=== PATIENT | female | born 1940 | race Caucasian/White ===

== ENCOUNTER → 2024-10-08 | Outpatient (CLI) | payer MEDICARE, MEDICAID, SELFPAY ==
[2024-10-08 10:46] LABS: Collection Type, Urine Clean Catch
[2024-10-08 11:24] LABS: Basophils # (Auto) 0.1 Thou/mm3 (0.0-0.2); Basophils % (Auto) 1 % (0-2.5); Eosinophils # (Auto) 0.1 Thou/mm3 (0.0-0.5); Eosinophils % (Auto) 2 % (0-10); Hematocrit 42.2 % (36.0-46.0); Hemoglobin 14.2 g/dL (12.0-16.0); Immature Granulocytes % (Auto) 0 % (0-0); Immature Granulocytes Auto 0.02 Thou/mm3 (0.00-0.00); Lymphocytes # (Auto) 1.3 Thou/mm3 (1.0-4.8); Lymphocytes % (Auto) 20 % (10-50); Mean Corpuscular HGB Conc 33.6 g/dl (31.0-37.0); Mean Corpuscular Hemoglobin 29.3 pg (25.0-35.0); Mean Corpuscular Volume 87 fL (80-100); Monocytes # (Auto) 0.4 Thou/mm3 (0.0-0.8); Monocytes % (Auto) 6 % (0-12); Neutrophils # (Auto) 4.6 Thou/mm3 (1.8-7.7); Neutrophils % (Auto) 71 % (37-80); Nucleated Red Blood Cell % 0 /100 WBC (0); Platelet Count 166 Thou/mm3 (140-440); RDW Standard Deviation 40.5 fL (36.4-46.3); Red Blood Count 4.84 Miln/mm3 (4.00-5.20); White Blood Count 6.5 Thou/mm3 (3.6-11.0)
[2024-10-08 11:26] LABS: Bilirubin,Urine Negative (Negative); Blood,Urine Trace (Negative); Clarity,Urine Clear (Clear/Hazy); Color,Urine Yellow (Lt Yel-Yel); Glucose, Urine Negative (Negative); Hyaline Casts,Urine < 1 /hpf (0-1); Ketones,Urine Negative (Negative); Leukocyte Esterase,Urine Positive (Negative); Nitrite,Urine Negative (Negative); PH,Urine 6.5 (5.0-7.0); Protein,Urine Negative (Neg - Trace); RBC,Urine 10 /hpf (0-3); Specific Gravity,Urine 1.015 (1.001-1.035); Squamous Epithelial Cell,Urine 1 /hpf (0-5); Urobilinogen,Urine Negative mg/dL (0.0-1.0); WBC,Urine 38 /hpf (0-5)
[2024-10-08 11:33] LABS: Parathyroid Hormone Intact 111.3 pg/ml (18.5-88.0)
[2024-10-08 11:39] LABS: Alanine Aminotransferase 19 U/L (10-49); Albumin, Serum 4.3 gm/dL (3.4-4.8); Alkaline Phosphatase 95 U/L (46-116); Anion Gap 6 (7-16); Aspartate Amino Transferase 21 U/L (0-34); BUN/Creatinine Ratio 11 Ratio (12-20); Bilirubin,Total 0.7 mg/dL (0.3-1.2); Blood Urea Nitrogen 16 mg/dL (9-23); Calcium 9.7 mg/dL (8.3-10.6); Calcium (Corrected) 9.7 mg/dL (8.5-10.1); Carbon Dioxide 30.8 mMol/L (20.0-31.0); Chloride 104 mMol/L (98-107); Cholesterol 152 mg/dL (132-200); Creatinine (Component) 1.4 mg/dL (0.6-1.3); Globulin 2.1 gm/dL (2.3-3.5); Glucose 168 mg/dL (74-106); Glucose Estimated Average 177 mg/dL (80-131); HDL Cholesterol 51 mg/dL (40-60); Hemoglobin A1C 7.8 % Hgb (4.8-6.0); LDL Cholesterol,Calculated 75 mg/dL (0-130); Osmolality,Calculated 286 (275-295); Potassium 4.5 mMol/L (3.4-5.1); Sodium 141 mMol/L (136-145); Total Protein 6.4 gm/dL (5.7-8.2); Triglycerides 130 mg/dL (30-150); eGFR 37 See Note
[2024-10-08 11:44] LABS: Creatinine MALB Rnd Ur 102 mg/dL (30-125); Microalbumin Creat Ratio 7 mg/gCrea (<30); Microalbumin, Random Urine 7 mg/L (0-300)
== END | disposition home or self-care (01) ==
LOC: COPL 09:38
PROVIDERS: PCP Internal Medicine; Referring Provider Internal Medicine; Visit Provider Internal Medicine
DX: I12.9 Hypertensive chronic kidney disease with stage 1 through stage 4 chronic kidney disease, or unspecified chronic kidney disease (principal); E11.22 Type 2 diabetes mellitus with diabetic chronic kidney disease; N18.30 Chronic kidney disease, stage 3 unspecified; E78.5 Hyperlipidemia, unspecified
CPT/HCPCS: 36415; 80053; 80061; 81001; 82043; 82570; 83036; 83970; 84443; 85025

== ENCOUNTER 2024-12-04 06:37 | Day surgery (SDC) | payer MEDICARE, MEDICAID, SELFPAY ==
[2024-11-30 13:36] VITALS: BMI 28.5
--- NOTE | 2024-12-03 07:00 | EKG_ITS ---
[facility] Test Date: 2024-12-03 Pat Name: LAZ DEWEY Department: Room: - Gender: Female Silk Printer: RTSJC : 1940 Requested By: Janette Telles Order Number: [id number] Reading MD: Janette Telles Measurements Intervals [place] Rate: 68 P: 125 MA: 250 QRS: 49 QRSD: 70 T: 22 QT: 403 QTc: 432 Interpretive Statements ELECTRONIC ATRIAL PACEMAKER SEPTAL MYOCARDIAL INFARCTION , OF INDETERMINATE AGE [40+ ms Q WAVE IN V1/V2] Compared to ECG 10/06/2023 10:48:07 Myocardial infarct finding now present T-wave abnormality no longer present /store/S0/[id number]/ecg/[id number]
[2024-12-03 11:01] LABS: Basophils # (Auto) 0.1 Thou/mm3 (0.0-0.2); Basophils % (Auto) 1 % (0-2.5); Eosinophils # (Auto) 0.1 Thou/mm3 (0.0-0.5); Eosinophils % (Auto) 1 % (0-10); Hematocrit 40.6 % (36.0-46.0); Hemoglobin 13.6 g/dL (12.0-16.0); Immature Granulocytes % (Auto) 0 % (0-0); Immature Granulocytes Auto 0.03 Thou/mm3 (0.00-0.00); Lymphocytes # (Auto) 1.3 Thou/mm3 (1.0-4.8); Lymphocytes % (Auto) 15 % (10-50); Mean Corpuscular HGB Conc 33.5 g/dl (31.0-37.0); Mean Corpuscular Hemoglobin 29.3 pg (25.0-35.0); Mean Corpuscular Volume 88 fL (80-100); Monocytes # (Auto) 0.5 Thou/mm3 (0.0-0.8); Monocytes % (Auto) 6 % (0-12); Neutrophils # (Auto) 6.8 Thou/mm3 (1.8-7.7); Neutrophils % (Auto) 77 % (37-80); Nucleated Red Blood Cell % 0 /100 WBC (0); Platelet Count 158 Thou/mm3 (140-440); RDW Standard Deviation 41.1 fL (36.4-46.3); Red Blood Count 4.64 Miln/mm3 (4.00-5.20); White Blood Count 8.9 Thou/mm3 (3.6-11.0)
[2024-12-03 11:08] LABS: Partial Thromboplastin Time 27.1 Seconds (22.0-36.0); Prothrombin Time 10.6 Seconds (9.0-12.2)
[2024-12-03 11:10] LABS: Anion Gap 8 (7-16); BUN/Creatinine Ratio 9 Ratio (12-20); Blood Urea Nitrogen 14 mg/dL (9-23); Calcium 9.7 mg/dL (8.3-10.6); Chloride 103 mMol/L (98-107); Creatinine (Component) 1.5 mg/dL (0.6-1.3); Estimated Creatinine Clearance 24.1 mL/min (>60); Glucose 248 mg/dL (74-106); Osmolality,Calculated 291 (275-295); Potassium 3.8 mMol/L (3.4-5.1); Sodium 142 mMol/L (136-145); eGFR 34 See Note
[2024-12-03 12:10] LABS: COVID-19 Antigen (In-House) Negative (Negative)
[2024-12-04] VITALS (15 sets, daily range): BP systolic 116–163; BP diastolic 67–90; PULSE 62–74; RESP 13–22; TEMP 36.4–36.8; O2SAT 92–97
[2024-12-04] MEDS: DIAZEPAM 5 MG TABLET PO (07:26)
--- NOTE | 2024-12-04 07:53 | PD.CARDCATH ---
Cardiac Cath Procedure Procedure Narrative Date of the procedure 3. Title of the procedure 1. Left heart catheterization 2. Left coronary angiogram 3. Right coronary angiogram 4. Left ventriculogram 5. Conscious sedation 6. Radiographic interpretation supervision 7. Ultrasound guidance for Right radial access Indication for the procedure This is a 84-year-old female with past medical history of hypertension hyperlipidemia complains of atypical chest pain Patient did undergo Cardiolite stress test which was abnormal Cardiac catheter and cholangiogram was recommended Procedure This is done in the cardiac lab under continuous electrocardiographic monitoring Intermittent blood pressure monitoring right radial arterial access obtained using modified Seldinger technique 6 Indonesian radial sheath was placed under ultrasound guidence TIG catheter was used for selective injection of the Left coronary artery TIG cather was used for selective injection of the Right coroanry artery TIG cather was used for LV gram Findings Hemodynamics Left ventricular systolic function is 55% Left ventricular end-diastolic pressure is 16 mmHg Gradient across the aortic valve is 0 mm gradient Coronary anatomy Right dominance Left main coronary artery is normal Left anterior descending artery is 20 to 30% lesion in the mid to distal region Diagonal vessel is Left circumflex artery is luminal regularities Obtuse marginal vessel is luminal regularities Right coronary artery is normal Posterior descending artery is 20 to 30% lesion Conclusion No significant coronary lesion Continue medical management Recommendation Medical management to continue
[2024-12-04] MEDS: SODIUM CHLORIDE 0.45 % 500 ML 100 ML IV (08:01)
[2024-12-04] MEDS: SODIUM CHLORIDE 0.45 % 500 ML 350 ML IV (09:31)
--- NOTE | 2024-12-04 10:05 | PC.NURSE ---
0801 patient is awake ,alert, breathing unlabored s/p LHC by Dr. Telles, TR band to right wrist, no bleeding or hematoma noted, report received from [facility], patient to recover for 3 hrs. 0930 total of 4ml air has been removed, small amount of blood noted to be leaking from TR band, 4ml air inserted back to TR band, site cleaned to assess for new bleeding. 0940 report given to [facility] 1000 report received from [facility], no active bleeding noted, 2ml air removed from TR band
--- NOTE | 2024-12-04 10:22 | PC.NURSE ---
patient ambulated to bathroom and voided
--- NOTE | 2024-12-04 13:09 | PC.NURSE ---
1211 patient is awake ,alert, breathing unlabored, TR band has been removed, no bleeding or hematoma noted to right wrist, patient able to ambulate to bathroom x2 and void. able to tolerate breakfast tray with no nausea or vomiting, meets discharge criteria, discharge instructions given to patient and friend Zahra, patient discharged home in wheelchair with all belongings.
== END 2024-12-04 12:11 | disposition home or self-care (01) ==
PROVIDERS: PCP Internal Medicine; Referring Provider Internal Medicine; Visit Provider Internal Medicine
PROC: (CPT 93458; principal; 2024-12-04 07:45)
DX: I25.118 Atherosclerotic heart disease of native coronary artery with other forms of angina pectoris (principal); I10 Essential (primary) hypertension; E78.5 Hyperlipidemia, unspecified; Z01.810 Encounter for preprocedural cardiovascular examination
CPT/HCPCS: 93458; 36415; 80048; 85025; 85610; 85730; 87811; 93005; 99152; A4216; A4649; C1769; C1887; C1894; J0171; J0461; J0583; J1643; J2250; J2310; J2371; J3010; J3490; J7030; J7040; Q9967; A9270; J2305

== ENCOUNTER → 2024-12-06 | Outpatient (CLI) | payer MEDICARE, MEDICAID, SELFPAY ==
[2024-12-06 11:33] LABS: Glucose Estimated Average 177 mg/dL (80-131); Hemoglobin A1C 7.8 % Hgb (4.8-6.0)
[2024-12-06 12:03] LABS: Albumin, Serum 3.6 gm/dL (3.4-4.8); Anion Gap 7 (7-16); BUN/Creatinine Ratio 10 Ratio (12-20); Blood Urea Nitrogen 16 mg/dL (9-23); Calcium (Corrected) 9.3 mg/dL (8.5-10.1); Carbon Dioxide 29.4 mMol/L (20.0-31.0); Chloride 106 mMol/L (98-107); Creatinine (Component) 1.6 mg/dL (0.6-1.3); Glucose 268 mg/dL (74-106); Osmolality,Calculated 293 (275-295); Sodium 142 mMol/L (136-145); eGFR 32 See Note
== END | disposition home or self-care (01) ==
PROVIDERS: PCP Internal Medicine; Referring Provider Internal Medicine; Visit Provider Internal Medicine
DX: I10 Essential (primary) hypertension (principal)
CPT/HCPCS: 36415; 80069; 83036

== ENCOUNTER 2024-12-21 17:26 | Emergency (ER) | payer MEDICARE, MEDICAID, SELFPAY ==
[2024-12-21 17:34] VITALS: PULSE 64; RESP 18
--- NOTE | 2024-12-21 17:40 | PC.NURSE ---
BIBA FROM HOME, HAD SYNCOPAL EPISODE, DOES NOT KNOW WHAT HAPPENED WOKE UP ON THE FLOOR, WAS HAVING B/L LE PAIN, UNABLE TO STAND. DENIES THINNERS. REPORTS PCP CHANGED BP MEDS RECENTLY.
[2024-12-21 17:42] VITALS: BP 128/61; PULSE 62; RESP 18; TEMP 36.4; O2SAT 97
--- NOTE | 2024-12-21 17:49 | XR_ITS ---
Examination: Right knee 2 views TECHNIQUE: AP lateral portable right knee 2 views Examination date and time: 2024 at 1713 hours INDICATIONS: Patient fell today with injury to the knee, knee pain FINDINGS: No acute fracture No dislocation IMPRESSION: No acute fracture
--- NOTE | 2024-12-21 17:49 | XR_ITS ---
Examination: Left ankle 2 views TECHNIQUE: AP lateral left ankle 2 views Standing time: December 21, 2024 1718 hours INDICATIONS: Patient fell today with injured ankle, ankle pain. FINDINGS: Significant osteopenia. No fracture or dislocation IMPRESSION: No fracture or dislocation
--- NOTE | 2024-12-21 17:49 | XR_ITS ---
Examination: CT brain head without contrast. 2-D sagittal coronal reconstructions Date and time of exam:December 21, 2024 8002 hours Comparison October 06, 2023 INDICATIONS: Syncopal episode today, patient fell with injury of the head followed by headache CTDI: vol (mGy):49.3 DLP: (mGycm):922 Technique: Multiple CT axial sections of the brain have been obtained, 5 mm slice thickness. Contrast has not been administered. 2-D sagittal, coronal reconstructions have been obtained Low dose protocols were performed. One or more of the following dose reduction techniques were used; automated exposure control, adjustment of the mA and/or KV according to patient size, use of iterative reconstruction technique. Findings: No significant ventricular enlargement. Intra-axial or extra-axial hemorrhage density is not seen. No mass effect or midline shift Basal cisterns are not remarkable. Fourth ventricle is midline. Cranial vault intact. Impression: Negative for acute hemorrhage, mass effect or midline shift
--- NOTE | 2024-12-21 17:49 | XR_ITS ---
Examination: Right ankle 2 views TECHNIQUE: Right ankle 2 views PA and lateral Exam date and time: 2024 at 1716 hours INDICATIONS: Patient fell today with injured ankle, ankle pain. FINDINGS: Acute fracture distal fibular shaft, without significant displacement No ankle dislocation IMPRESSION: Acute fracture distal fibular shaft
--- NOTE | 2024-12-21 17:49 | XR_ITS ---
Examination: AP chest single view TECHNIQUE:: AP portable upright chest single view Examination time: December 21, 2024 at 1711 hours Comparison October 06, 2023 INDICATIONS: Patient fell today with image of the chest, chest pain FINDINGS: Normal heart size Cardiac leads satisfactory position. No pneumothorax. Clavicles ribs appear intact IMPRESSION: No pneumothorax pulmonary contusion or hemothorax
--- NOTE | 2024-12-21 17:51 | EKG_ITS ---
[facility] Test Date: 2024-12-21 Pat Name: LAZ DEWEY Department: Room: - Gender: Female Automation Lead: : 1940 Requested By: Erich Carey Order Number: [id number] Reading MD: Erich Carey Measurements Intervals [place] Rate: 66 P: 10 [place]: 244 QRS: 45 QRSD: 74 T: 13 QT: 404 QTc: 424 Interpretive Statements ELECTRONIC ATRIAL PACEMAKER MODERATE T-WAVE ABNORMALITY, CONSIDER ANTERIOR ISCHEMIA [-0.1+ mV T-WAVE IN V3/V4] Compared to ECG 12/03/2024 10:42:31 T-wave abnormality now present Possible ischemia now present Myocardial infarct finding no longer present /store/S0/[id number]/ecg/[id number].pdf
--- NOTE | 2024-12-21 17:51 | PD.EDSYNC ---
ED Syncope RME/HPI General Chief Complaint: Syncope / Near Syncope Stated Complaint: SYNCOPAL EPISODE Time Seen by Provider: 12/21/24 17:47 Arrival date/time: 12/21/24 17:26 RME / HPI RME / HPI narrative: 84-year-old female patient with significant history of hypertension hypercholesterolemia, diabetes mellitus, hypothyroidism, was brought in by EMS for evaluation regarding syncope. Patient was walking in her kitchen, apparently does not remember what happened later on she woke up on the floor. Patient complained of pain to the right knee, bilateral ankle, described as dull ache, severity moderate. Patient is unable to ambulate due to pain. Patient denies any symptoms prior to the incident. She denies any chest pain. She denies any complaints. Patient is not taking any blood therapy. When the EMS arrived patient blood sugar was noted to be 183. Related Data Home Medications ?Medication ?Instructions ?Recorded ?Confirmed liothyronine 5 mcg tablet 5 mcg PO QDAY 11/02/18 12/04/24 dorzolamide 22.3 mg-timolol 6.8 1 drp ophthalmic (eye) BID 11/03/18 12/04/24 mg/mL eye drops latanoprost 0.005 % eye drops 1 drp ophthalmic (eye) HS 11/03/18 12/04/24 levothyroxine 25 mcg tablet 25 mcg PO QDAY 11/03/18 12/04/24 atorvastatin 20 mg tablet 20 mg PO HS 07/16/20 12/04/24 calcitriol 0.25 mcg capsule 0.25 mcg PO QDAY 07/16/20 12/04/24 lisinopril 20 mg tablet 20 mg PO QDAY 07/16/20 01/21/23 sertraline 50 mg tablet 50 mg PO HS 07/16/20 12/04/24 vitamin B comp no.3-folic acid 1 1 tab PO QDAY 07/16/20 12/04/24 mg-vit C 60 mg-biotin 300 mcg tablet ([facility]) mirabegron 25 mg tablet,extended 25 mg PO HS 01/21/23 12/04/24 release 24 hr (Myrbetriq) sitagliptin phosphate 50 mg tablet 100 mg PO QDAY 01/21/23 12/04/24 (Januvia) amlodipine 5 mg tablet 5 mg PO QDAY 10/07/23 12/04/24 brimonidine 0.2 % eye drops 1 drp ophthalmic (eye) BID 12/04/24 12/04/24 dorzolamide 2 % eye drops 1 drp ophthalmic (eye) TID 12/04/24 12/04/24 Previous Rx's ?Medication ?Instructions ?Recorded pantoprazole 20 mg tablet,delayed 20 mg PO BID #60 tabs 10/08/23 release sucralfate 1 gram tablet (Carafate) 1 g PO BID #60 tabs 10/08/23 ibuprofen 600 mg tablet 600 mg PO TID PRN pain #30 tabs 12/21/24 Allergies Allergy/AdvReac Type Severity Reaction Status Date / Time penicillin Allergy Intermediate rash Verified 12/21/24 17:38 Review of Systems Review of Systems Narrative Review of Systems: Review of system reviewed and within normal limits except mentioned in HPI ED Exam Narrative Physical exam: VITAL SIGNS: Reviewed. GENERAL APPEARANCE: Alert and interactive, follows commands, no acute distress, HEAD AND FACE: Non-traumatic. ENT: PERRL, pink conjunctivitis, eyelid no trauma, Mucous membrane moist. NECK: Supple, nontender, no nuchal rigidity. CHEST: No tenderness, no crepitus, no paradoxical movement, no retractions. LUNGS: Clear, well ventilated, symmetric, no rales, no wheezing, no ronchi, no stridor, good breath sounds bilaterally. HEART: Regular rate, regular rhythm, no murmur, no gallops. ABDOMEN: Soft, positive bowel sounds, nondistended, no guarding, nontender, no rebound, no masses, RECTAL: Deferred. GENITAL: Deferred. NEUROLOGICAL: Gross motor function intact sensory function intact, Appropriate for age. MUSCULOSKELETAL: low back nontender, full range of motion. EXTREMITIES: Right medial knee tenderness mild swelling, bilateral ankle tenderness, mild swelling full range of motion. SKIN: Color pink, dry, no rash, no lacerations, no abrasions, no contusions. LYMPHATICS: Deferred. Course Quality Measures none Orders Category Date Time Status EKG (ED ONLY) *Do not use* NOW Care 12/21/24 17:51 Completed splint [Splint / Immobilizer] STAT Care 12/21/24 19:[address] head/brain wo con Stat Exams 12/21/24 17:49 Completed EKG (ED Only) Stat Exams 12/21/24 17:51 Draft XR ankle LT 2V Stat Exams 12/21/24 17:49 Completed XR ankle RT 2V Stat Exams 12/21/24 17:49 Completed XR chest 1V Stat Exams 12/21/24 17:49 Completed XR knee limited RT 2V Stat Exams 12/21/24 17:49 Completed CBC Stat Lab 12/21/24 18:52 Completed Comprehensive Metabolic Panel Stat Lab 12/21/24 18:52 Completed Partial Thromboplastin Time Stat Lab 12/21/24 18:52 Completed Troponin I Stat Lab 12/21/24 18:52 Completed Urinalysis, C/S if Indicated Stat Lab 12/21/24 17:49 Ordered Vital Signs Vital signs: Vital Signs Temperature 97.5 F 12/21/24 17:42 Pulse Rate 62 12/21/24 17:42 Respiratory Rate 18 12/21/24 17:42 Blood Pressure 128/61 12/21/24 17:42 Pulse Oximetry (%) 97 12/21/24 17:42 Oxygen Delivery Method Room Air 12/21/24 17:42 Syncope MDM Narrative MDM Narrative:: 84-year-old female patient with significant history of hypertension hypercholesterolemia, diabetes mellitus, hypothyroidism, was brought in by EMS for evaluation regarding syncope. Patient was walking in her kitchen, apparently does not remember what happened later on she woke up on the floor. Patient complained of pain to the right knee, bilateral ankle, described as dull ache, severity moderate. Patient is unable to ambulate due to pain. Patient denies any symptoms prior to the incident. She denies any chest pain. She denies any complaints. Patient is not taking any blood therapy. When the EMS arrived patient blood sugar was noted to be 183. EKG showed paced rhythm, ventricular rate of 66 bpm, no ST segment elevation or depression noted. CT scan of the head came back unremarkable. X-ray of the left ankle came back unremarkable. X-ray of the knee came back unremarkable. Chest x-ray came back unremarkable. Laboratory workup all came back normal results discussed with the patient family. Alcohol sterile was applied, well-padded, distal neurovascular status intact post splinting. Patient was advised to follow-up closely with PCP and follow-up this coming Tuesday at 3 PM with a clinic of the DR Oconnor orthopedic surgeon. Patient data External records reviewed:: None Clinical information provided by:: patient Social determinants that could affect healthcare access:: none Patient has the following chronic illnesses:: Diabetes mellitus, hypertension How is presenting disease/condition affected by chronic disease/condition?: uneffected by Evaluation data The following diagnostics were reviewed and interpreted by me:: lab results, radiology exam(s) and EKG tracing(s) Lab and/or radiology exams considered but not ordered:: None Interpretation Summary: See results in MDM Medications / Prescriptions Medications or Prescriptions considered but not ordered:: None Medication administrations:: None Consultations Consultation(s) initiated? (list below): No Diagnosis Syncope Differential Diagnosis: syncope due to orthostatic hypotension, vasovagal syncope and other (Syncope, right distal fibular fracture) Most likely diagnosis given after review of the tests above:: Syncope, right distal fibula fracture Admission Indicated Admission indicated?: not indicated Admission Request Was there a request for admission?: No Disposition Plan Disposition Plan: Discharge Discharge Attestation Discharge Attestation: The patient and all family members were given an opportunity to ask questions and understood the discharge instructions. Discharge instructions specifically effects, indications for sooner follow up or return to the emergency department, and the expected course of current diagnosis. Patient condition: Stable Discharge Plan Plan Patient Disposition: HOME (Self Care) Disposition Comment: Stable Prescriptions/Referrals Prescriptions/Med Rec: New ibuprofen 600 mg tablet 600 mg PO TID PRN (Reason: pain) Qty: 30 0RF No Action liothyronine 5 mcg Tablet 5 mcg PO QDAY latanoprost 0.005 % Drops 1 drp OPHTHALMIC (EYE) HS Rx Instructions: each eye. dorzolamide-timolol 22.3-6.8 mg/mL Drops 1 drp OPHTHALMIC (EYE) BID Rx Instructions: right eye. levothyroxine 25 mcg Tablet 25 mcg PO QDAY atorvastatin 20 mg Tablet 20 mg PO HS lisinopril 20 mg tablet 20 mg PO QDAY sertraline 50 mg Tablet 50 mg PO HS calcitriol 0.25 mcg Capsule 0.25 mcg PO QDAY [facility] Rx 1-60-300 mg-mg-mcg tablet 1 tab PO QDAY Patient Comments: TAKE ONE TABLET BY MOUTH EVERY DAY amlodipine 5 mg tablet 5 mg PO QDAY Patient Comments: TAKE 1 TABLET BY MOUTH EVERY DAY sucralfate [Carafate] 1 gram tablet 1 g PO BID Qty: 60 0RF pantoprazole 20 mg tablet,delayed release (DR/EC) 20 mg PO BID Qty: 60 0RF dorzolamide 2 % drops 1 drp ophthalmic (eye) TID brimonidine 0.2 % drops 1 drp ophthalmic (eye) BID Patient Comments: both eyes Rx Instructions: administer approximately 8 hours apart mirabegron [Myrbetriq] 25 mg tablet extended release 24 hr 25 mg PO HS Januvia 50 mg tablet 100 mg PO QDAY Patient Comments: TAKE 1 TABLET BY MOUTH EVERY DAY Referrals: Ab Oconnor MD [Physician] - 12/21/24 3:00 pm Vaughn Forte MD [Primary Care Provider] - In 1 week Problem List Clinical Impression: Syncope, Closed fracture of distal end of right fibula Patient/Caregiver Discharge Instructions Discharge Activity: activity as tolerated Education Materials: How Bones Heal, Understanding Vasovagal Syncope Additional Instructions: Thank you for the opportunity for serving you today. You are stable for discharged . You are advised to: Follow-up with your PCP in 1 to 2 days Follow-up with Dr. Oconnor, orthopedic surgeon, Tuesday 3 PM please call ahead for appointment Return to ED for worsening of symptoms Increase oral fluids Take medication as prescribed Elevate leg as instructed, partial weightbearing right lower extremity with walker Print Language: Spanish Stand Alone Forms: Mildred Award Info., Patient Portal Info Letter PA/SHENG Supervising Physician PA/SHENG Supervising Physician: MD Navya
[2024-12-21 19:12] LABS: Basophils # (Auto) 0.1 Thou/mm3 (0.0-0.2); Basophils % (Auto) 1 % (0-2.5); Eosinophils # (Auto) 0.1 Thou/mm3 (0.0-0.5); Eosinophils % (Auto) 2 % (0-10); Hematocrit 37.7 % (36.0-46.0); Hemoglobin 12.9 g/dL (12.0-16.0); Immature Granulocytes % (Auto) 0 % (0-0); Immature Granulocytes Auto 0.02 Thou/mm3 (0.00-0.00); Lymphocytes # (Auto) 1.6 Thou/mm3 (1.0-4.8); Lymphocytes % (Auto) 22 % (10-50); Mean Corpuscular HGB Conc 34.2 g/dl (31.0-37.0); Mean Corpuscular Hemoglobin 29.1 pg (25.0-35.0); Mean Corpuscular Volume 85 fL (80-100); Monocytes # (Auto) 0.5 Thou/mm3 (0.0-0.8); Monocytes % (Auto) 7 % (0-12); Neutrophils # (Auto) 4.9 Thou/mm3 (1.8-7.7); Neutrophils % (Auto) 69 % (37-80); Nucleated Red Blood Cell % 0 /100 WBC (0); Platelet Count 141 Thou/mm3 (140-440); RDW Standard Deviation 39.8 fL (36.4-46.3); Red Blood Count 4.44 Miln/mm3 (4.00-5.20); White Blood Count 7.2 Thou/mm3 (3.6-11.0)
[2024-12-21 19:24] VITALS: BP 129/80; PULSE 64; RESP 18; O2SAT 97
[2024-12-21 19:30] LABS: Partial Thromboplastin Time 26.8 Seconds (22.0-36.0)
[2024-12-21 19:32] LABS: Alanine Aminotransferase 13 U/L (10-49); Albumin, Serum 3.8 gm/dL (3.4-4.8); Albumin/Globulin Ratio 1.7 (1.2-2.2); Alkaline Phosphatase 73 U/L (46-116); Anion Gap 7 (7-16); Aspartate Amino Transferase 28 U/L (0-34); BUN/Creatinine Ratio 13 Ratio (12-20); Bilirubin,Total 0.4 mg/dL (0.3-1.2); Blood Urea Nitrogen 20 mg/dL (9-23); Calcium 10.2 mg/dL (8.3-10.6); Calcium (Corrected) 10.4 mg/dL (8.5-10.1); Carbon Dioxide 25.8 mMol/L (20.0-31.0); Chloride 110 mMol/L (98-107); Creatinine (Component) 1.6 mg/dL (0.6-1.3); Globulin 2.3 gm/dL (2.3-3.5); Glucose 153 mg/dL (74-106); Osmolality,Calculated 290 (275-295); Potassium 4.3 mMol/L (3.4-5.1); Sodium 143 mMol/L (136-145); Total Protein 6.1 gm/dL (5.7-8.2); Troponin I < 0.020 ng/mL (0.0-0.045); eGFR 32 See Note
== END 2024-12-21 20:45 | disposition home or self-care (01) ==
PROVIDERS: Nurse Practitioner Family; Emergency Provider Emergency Medicine; PCP Internal Medicine
DX: S82.831A Other fracture of upper and lower end of right fibula, initial encounter for closed fracture (principal); R55 Syncope and collapse; S09.90XA Unspecified injury of head, initial encounter; S99.912A Unspecified injury of left ankle, initial encounter; S89.91XA Unspecified injury of right lower leg, initial encounter; R07.9 Chest pain, unspecified; W19.XXXA Unspecified fall, initial encounter; R94.31 Abnormal electrocardiogram [ECG] [EKG]; Z95.0 Presence of cardiac pacemaker; I10 Essential (primary) hypertension; E78.00 Pure hypercholesterolemia, unspecified
CPT/HCPCS: 29515; 36415; 70450; 71045; 73560; 73600; 80053; 81001; 84484; 85025; 85730; 93005; 99284

== ENCOUNTER 2024-12-28 07:30 | Day surgery (SDC) | payer MEDICARE, MEDICAID, SELFPAY ==
[2024-12-27 11:24] VITALS: BMI 28.1
--- NOTE | 2024-12-27 12:37 | ESHP_ITS ---
RE: LAZ DEWEY : 1940 DATE OF ADMISSION: 12/27/2024 The patient came to my office on 12/27/2024 for detailed preop history and physical examination. HISTORY OF PRESENT COMPLAINT: The patient has got injured right ankle on 12/21/2024. X-ray was obtained in the emergency room and it revealed displaced fracture of the right lateral malleolus with wide ankle mortise. Hence, the patient needs surgical intervention. PAST MEDICAL HISTORY: The patient has a history of high blood pressure. No history of diabetes mellitus, asthma, seizures, chest pain, or myocardial infarction. PAST SURGICAL HISTORY: The patient has had a right hip surgery done in 2019 due to fracture. DRUG HISTORY: The patient is on 1. Amlodipine. 2. Calcitriol. 3. Januvia. 4. Levothyroxine. 5. ALLERGIES: ALLERGIES TO PENICILLIN. FAMILY HISTORY AND SOCIAL HISTORY: The patient denies smoking. She quit smoking sometime back. She does not drink and is retired. PHYSICAL EXAMINATION: GENERAL: Normal-built lady. VITAL SIGNS: Pulse is 76 per minute. Blood pressure is 130/78 mmHg. NECK: Soft, supple. No mass felt. Trachea is centrally placed. CARDIOVASCULAR SYSTEM: First and second heart sounds are normal. No murmur heard. RESPIRATORY SYSTEM: Bilateral vesicular breath sounds. CHEST: Clear. ABDOMEN: Soft. No mass felt. Bowel sounds present. EXTREMITIES: Right ankle examination revealed swelling 1+. There is 2+ tenderness. Range of motion is restricted and painful. DIAGNOSTIC DATA: X-ray revealed a fractured right lateral malleolus, which is displaced with wide ankle mortise. ASSESSMENT AND PLAN: Since the patient is symptomatic, therefore, right lateral malleolus is advised to be fixed with plate and screws. Risks with anesthesia include, but not limited to reaction to anesthetic agents, cardiac arrest, and rarely it might be fatal. Risk with outpatient includes infection and if that happens, the patient may need further surgical procedure. Other risks include delayed healing, wound dehiscence, etc. No guarantee is given regarding the outcome of the procedure. With this kind of fracture, the range of motion is restricted even after full healing and the patient is fully aware of that. The patient will be nonweightbearing at least for 6-7 weeks after the surgical procedure. Appropriate lab work is done. Surgery booked for 12/28/2024. DT: 11:55:53 TT: 12:22:00 Ref: [id number] - TID: [id number]
[2024-12-27 13:17] LABS: Prothrombin Time 11.1 Seconds (9.0-12.2)
--- NOTE | 2024-12-27 14:45 | SUR.PREOP ---
Pt notified to come in at 0800 tomorrow for surgery
--- NOTE | 2024-12-27 14:46 | SUR.PREOP ---
Cardiac records and history reviewed with Dr Yao.
[2024-12-28] VITALS (9 sets, daily range): BP systolic 134–161; BP diastolic 64–97; PULSE 67–99; RESP 14–20; TEMP 36.5–36.8; O2SAT 94–99; BMI 27.1
--- NOTE | 2024-12-28 09:44 | SUR.PREOP ---
Patient expressed gratitude for pryer before their procedure
--- NOTE | 2024-12-28 12:41 | SUR.PHASEI ---
1241 Patient arrived to recovery resting comfortably in [facility], drowsy and responding to staff, breathing unlabored, vital signs stable, denies pain, dressing intact to right ankle; santi, adaptic soaked in betadine, fluffs, webril, orthoglass cast, bias roll, silk tape, no bleeding noted, patient has good circulation to right lower extremity skin warm to touch, normal color for patient and capillary refill to right toes is one second, report received from Dr. Yao and [facility]
--- NOTE | 2024-12-28 12:44 | PD.SUROPNT ---
Date of Procedure 12/28/24 Pre Op Diagnosis Displaced fracture right lateral malleolus with wide ankle mortise Post Op Diagnosis Same Procedure Open reduction internal fixation with distal fibular plate Synthes implant. Findings Patient has distal right fibular fracture with widened ankle mortise Procedure Description Patient was given general anesthesia. Once satisfactory anesthesia achieved bone foam was placed. Intravenous antibiotics was given at the time of anesthesia. Tourniquet was placed on right upper thigh. After thoroughly prepping and draping the part the Esmarch was used and tourniquet pressure was raised to 350 mmHg I skin incision was made from the tip of lateral malleolus extending posterior laterally for about 4 to 5 inches. Deeper dissection was carried out. Care was taken not to damage the sural nerve. A plane was developed between the fibula and the posterior lateral group of muscles Fracture was exposed. With the help of [place] and curette the soft tissue interposed between the fracture fragment was removed Following that the fracture was reduced. Ankle mortise was also very well-maintained Following that 4-hole distal fibula plate was mounted over the lateral aspect. 1 cortical screw proximally and 1 cortical screw distally was placed and position was checked under C arm and found to be good Following that for interlocking screw distally and 2 interlocking screw proximally was placed The ankle mortise was very well maintained and fracture was reduced Wound was irrigated with antibiotic solution every 4 to 5 minutes Soft tissue was then closed with the help of 2-0 Vicryl in an interrupted fashion. Skin was closed with a santi about 20 mL of quarter percent Marcaine was injected at the skin incision site After cleaning the wound with hydrogen peroxide solution a sterile dressing was applied. A short leg splint was applied and tourniquet pressure was released Patient tolerated procedure very well. Estimated blood loss 4 to 5 mL. Prognosis in this case is good Anesthesia GETA Pathology / specimen None Estimated Blood Loss 5 Surgeon Ab Oconnor MD Surgical Staff Operation Date: 12/28/24 11:00 Case Staff Anesthesiologist: Galo Yao RNsystems support officer: Stella Couch
--- NOTE | 2024-12-28 12:53 | XR_ITS ---
Examination: AP right ankle single view Fluoroscopy Exam date and time: December 28, 2024 1226 hours INDICATIONS: Operative reduction internal fixation fracture fibular shaft today TECHNIQUE AND FINDINGS: AP spot fluoroscopic film right ankle Status post operative reduction internal fixation fracture distal fibular shaft Anatomic alignment Orthopedic hardware satisfactory position Fluoroscopy 19 seconds radiation dose 0.24 milligray 1 spot fluoroscopic ankle film IMPRESSION: Operative reduction internal fixation fracture distal fibular shaft with anatomic alignment
--- NOTE | 2024-12-28 13:02 | XR_ITS ---
Examination: Left ankle 2 views Technique one AP lateral left ankle 2 views Exam date and time: December 28, 2024 1335 hours INDICATIONS: Postop reduction fracture distal fibular shaft, acute fibular shaft fracture December 21, 2024 FINDINGS: Postop reduction internal fixation distal fibular shaft fracture Anatomic alignment Satisfactory position orthopedic hardware IMPRESSION: Postop reduction internal fixation fibular shaft fracture with anatomic alignment
--- NOTE | 2024-12-28 13:20 | SUR.PHASEII ---
1320 Educated patient on how to use an incentive spirometer via demonstration, patient receptive and able to to give a return demonstration on proper use
--- NOTE | 2024-12-28 14:13 | SUR.PHASEII ---
1413 Patient meets discharge criteria from recovery, awake and alert, breathing unlabored, vital signs stable, denies pain, dressing intact; no bleeding noted, patient ate a jello and drinking fluids; denies nausea, patient assisted with dressing into her clothing by her grand-daughter and this publications writer, discharge instructions given to patient and patient grand-daughter with teach-back approach, both receptive of instructions. Patient given all her belongings prior to discharge, transported via her personal wheelchair and left in a private vehicle.
== END 2024-12-28 14:13 | disposition home or self-care (01) ==
PROVIDERS: PCP Internal Medicine; Referring Provider Orthopaedic Surgery; Visit Provider Orthopaedic Surgery
PROC: (CPT 27792; principal; 2024-12-28 11:00)
DX: S82.61XA Displaced fracture of lateral malleolus of right fibula, initial encounter for closed fracture (principal); I10 Essential (primary) hypertension
CPT/HCPCS: 27792; 36415; 73600; 76000; 85610; A4217; A4649; C1713; J0690; J1100; J2704; J2765; J3010; J3490

== ENCOUNTER → 2025-02-11 | Outpatient (CLI) | payer MEDICARE, MEDICAID, SELFPAY ==
--- NOTE | 2025-02-11 09:49 | XR_ITS ---
EXAMINATION: Ankle, left 3 views . Technique: Ankle AP, oblique, lateral 3 views Date and time of exam: February 11, 2025 0952 hours Comparison December 20, 2024 INDICATIONS: Status post reduction internal fixation fracture distal fibular shaft December 28, 2024 FINDINGS: Partial significant healing fracture distal fibular shaft with stable and satisfactory alignment IMPRESSION: Significant partial healing fracture distal fibular shaft with stable and satisfactory alignment
== END | disposition home or self-care (01) ==
LOC: CDIM 09:39
PROVIDERS: Referring Provider Orthopaedic Surgery; Visit Provider Orthopaedic Surgery
DX: S82.401A Unspecified fracture of shaft of right fibula, initial encounter for closed fracture (principal); X58.XXXA Exposure to other specified factors, initial encounter; Z98.890 Other specified postprocedural states
CPT/HCPCS: 73610

== ENCOUNTER → 2025-02-28 | Outpatient (CLI) | payer MEDICARE, MEDICAID, SELFPAY ==
[2025-02-28 10:58] LABS: Basophils % (Auto) 1 % (0-2.5); Eosinophils # (Auto) 0.1 Thou/mm3 (0.0-0.5); Eosinophils % (Auto) 2 % (0-10); Hematocrit 40.1 % (36.0-46.0); Hemoglobin 13.7 g/dL (12.0-16.0); Immature Granulocytes % (Auto) 0 % (0-0); Immature Granulocytes Auto 0.01 Thou/mm3 (0.00-0.00); Lymphocytes # (Auto) 1.8 Thou/mm3 (1.0-4.8); Lymphocytes % (Auto) 27 % (10-50); Mean Corpuscular HGB Conc 34.2 g/dl (31.0-37.0); Mean Corpuscular Hemoglobin 29.5 pg (25.0-35.0); Mean Corpuscular Volume 86 fL (80-100); Monocytes # (Auto) 0.4 Thou/mm3 (0.0-0.8); Monocytes % (Auto) 6 % (0-12); Neutrophils # (Auto) 4.3 Thou/mm3 (1.8-7.7); Neutrophils % (Auto) 66 % (37-80); Nucleated Red Blood Cell % 0 /100 WBC (0); Platelet Count 211 Thou/mm3 (140-440); RDW Standard Deviation 41.4 fL (36.4-46.3); Red Blood Count 4.65 Miln/mm3 (4.00-5.20); White Blood Count 6.6 Thou/mm3 (3.6-11.0)
[2025-02-28 11:05] LABS: Glucose Estimated Average 117 mg/dL (80-131); Hemoglobin A1C 5.7 % Hgb (4.8-6.0)
[2025-02-28 11:08] LABS: Creatinine MALB Rnd Ur 175 mg/dL (30-125); Microalbumin Creat Ratio 21 mg/gCrea (<30); Microalbumin, Random Urine 36 mg/L (0-300)
[2025-02-28 11:10] LABS: Alanine Aminotransferase 13 U/L (10-49); Albumin, Serum 3.8 gm/dL (3.4-4.8); Albumin/Globulin Ratio 1.7 (1.2-2.2); Alkaline Phosphatase 78 U/L (46-116); Anion Gap 9 (7-16); Aspartate Amino Transferase 30 U/L (0-34); BUN/Creatinine Ratio 11 Ratio (12-20); Bilirubin,Total 0.7 mg/dL (0.3-1.2); Blood Urea Nitrogen 13 mg/dL (9-23); Calcium 9.2 mg/dL (8.3-10.6); Calcium (Corrected) 9.4 mg/dL (8.5-10.1); Carbon Dioxide 30.2 mMol/L (20.0-31.0); Cardiac Risk Estimate 2.6 RATIO (3.7-5.6); Chloride 106 mMol/L (98-107); Cholesterol 118 mg/dL (132-200); Creatinine (Component) 1.2 mg/dL (0.6-1.3); Globulin 2.2 gm/dL (2.3-3.5); Glucose 120 mg/dL (74-106); HDL Cholesterol 45 mg/dL (40-60); LDL Cholesterol,Calculated 53 mg/dL (0-130); Osmolality,Calculated 289 (275-295); Potassium 3.9 mMol/L (3.4-5.1); Sodium 145 mMol/L (136-145); Thyroid Stimulating Hormone 0.52 uIU/mL (0.55-4.78); Triglycerides 101 mg/dL (30-150); eGFR 45 See Note
== END | disposition home or self-care (01) ==
LOC: COPL 10:02
PROVIDERS: PCP Internal Medicine; Referring Provider Internal Medicine; Visit Provider Internal Medicine
DX: E03.9 Hypothyroidism, unspecified (principal); E78.5 Hyperlipidemia, unspecified; N18.30 Chronic kidney disease, stage 3 unspecified; E11.22 Type 2 diabetes mellitus with diabetic chronic kidney disease; I12.9 Hypertensive chronic kidney disease with stage 1 through stage 4 chronic kidney disease, or unspecified chronic kidney disease
CPT/HCPCS: 36415; 80053; 80061; 82043; 82570; 83036; 84443; 85025

== ENCOUNTER → 2025-04-24 | Outpatient (CLI) | payer MEDICARE, MEDICAID, SELFPAY ==
--- NOTE | 2025-04-24 10:06 | XR_ITS ---
EXAMINATION: Ankle, right 3 views . Technique: Ankle AP, oblique, lateral 3 views Date and time of exam: April 24, 2025 1016 hours Compared to ankle films dating to December 21, 2024 INDICATIONS: Acute fracture distal fibular shaft December 21, 2024 FINDINGS: Significant healing fracture distal fibular shaft with anatomic alignment Sideplate screw satisfactory position Prominent osteopenia IMPRESSION: Significant healing fracture distal fibular shaft with anatomic alignment
== END | disposition home or self-care (01) ==
PROVIDERS: PCP Obstetrics & Gynecology; Referring Provider Obstetrics & Gynecology; Visit Provider Obstetrics & Gynecology
DX: S82.491A Other fracture of shaft of right fibula, initial encounter for closed fracture (principal); X58.XXXA Exposure to other specified factors, initial encounter; Z98.890 Other specified postprocedural states
CPT/HCPCS: 73610

== ENCOUNTER → 2025-05-01 | Outpatient (CLI) | payer MEDICARE, MEDICAID, SELFPAY ==
--- NOTE | 2025-05-01 13:00 | XR_ITS ---
Examination: Screening digital mammography, bilateral Computer aided detection 3-D breast Tomosynthesis, bilateral Date and time of exam: May 01, 2025 1314 hours Compared to mammograms dating to December 12, 2019 Indication: Screening Technique: Nonmagnified MLO, CC views of the breasts to been obtained, reconstructed from 3-D Tomosynthesis images. R2 computer aided detection program utilized for evaluation of suspicious masses and/or abnormal calcifications. 3-D Tomosynthesis images obtained. Findings: The breasts are heterogeneously dense, which may obscure small masses Stable focal asymmetries central annular right breast on the CC view No interval suspicious masses Impression: BI-RADS category II: Benign Findings. Recommend 1 year follow-up mammogram.
--- NOTE | 2025-05-01 13:15 | XR_ITS ---
Examination: Bone densitometry Date and time of exam:May 01, 2025 1310 hours INDICATIONS: Hysterectomy age 40 levothyroxine 15 years postmenopausal hip fracture 4 years ago, personal history osteopenia Technique: Lumbar spine and hip total bone mineralization values of an calculated. Peak reference and age match control results have been displayed. Findings: Lumbar spine total bone mineralization is1.027 gm/cm2. This is 0.2 standard deviations below peak reference. This is 2.6 standard deviations above age-matched controls. Hip total bone mineralization is 0.734 gm/cm2 This is 1.7 standard deviations below peak reference. This is 0.6 standard deviations above age-matched controls Impression: There is normal mineralization based on lumbar spine measurements. There is osteopenia based on hip measurements Lumbar mineralization is decreased 6.3% compared with January 26, 2022 Hip mineralization is decreased 11.9% compared with January 26, 2022
== END | disposition home or self-care (01) ==
LOC: CDIM 12:47
PROVIDERS: Referring Provider Internal Medicine; Visit Provider Internal Medicine
DX: Z12.31 Encounter for screening mammogram for malignant neoplasm of breast (principal); R92.323 Mammographic fibroglandular density, bilateral breasts; M85.89 Other specified disorders of bone density and structure, multiple sites
CPT/HCPCS: 77063; 77067; 77080

== ENCOUNTER → 2025-05-27 | Outpatient (CLI) | payer MEDICARE, MEDICAID, SELFPAY ==
[2025-05-27 10:47] LABS: Parathyroid Hormone Intact 121.5 pg/ml (18.5-88.0)
[2025-05-27 10:54] LABS: Albumin, Serum 3.6 gm/dL (3.4-4.8); Anion Gap 9 (7-16); BUN/Creatinine Ratio 9 Ratio (12-20); Blood Urea Nitrogen 11 mg/dL (9-23); Calcium 9.6 mg/dL (8.3-10.6); Calcium (Corrected) 9.9 mg/dL (8.5-10.1); Carbon Dioxide 30.0 mMol/L (20.0-31.0); Chloride 106 mMol/L (98-107); Creatinine (Component) 1.2 mg/dL (0.6-1.3); Free T4 (Free Thyroxine) 0.99 ng/dL (0.89-1.76); Glucose 95 mg/dL (74-106); Osmolality,Calculated 288 (275-295); Phosphorous 3.4 mg/dL (2.4-5.1); Potassium 3.9 mMol/L (3.4-5.1); Sodium 145 mMol/L (136-145); Thyroid Stimulating Hormone 0.75 uIU/mL (0.55-4.78); eGFR 45 See Note
[2025-05-27 11:06] LABS: Collection Type, Urine Clean Catch
[2025-05-27 11:11] LABS: Glucose Estimated Average 126 mg/dL (80-131); Hemoglobin A1C 6.0 % Hgb (4.8-6.0)
[2025-05-27 12:47] LABS: Bilirubin,Urine Negative (Negative); Blood,Urine Negative (Negative); Clarity,Urine Clear (Clear/Hazy); Color,Urine Yellow (Lt Yel-Yel); Glucose, Urine Negative (Negative); Ketones,Urine Negative (Negative); Leukocyte Esterase,Urine Positive (Negative); Nitrite,Urine Negative (Negative); PH,Urine 7.0 (5.0-7.0); Protein,Urine Negative (Neg - Trace); RBC,Urine 3 /hpf (0-3); Specific Gravity,Urine 1.013 (1.001-1.035); Squamous Epithelial Cell,Urine 1 /hpf (0-5); Urobilinogen,Urine Negative mg/dL (0.0-1.0); WBC,Urine 4 /hpf (0-5)
== END | disposition home or self-care (01) ==
LOC: COPL 09:40
PROVIDERS: PCP Internal Medicine; Referring Provider Internal Medicine; Visit Provider Internal Medicine
DX: E11.22 Type 2 diabetes mellitus with diabetic chronic kidney disease (principal); I12.9 Hypertensive chronic kidney disease with stage 1 through stage 4 chronic kidney disease, or unspecified chronic kidney disease; N18.30 Chronic kidney disease, stage 3 unspecified; E78.5 Hyperlipidemia, unspecified
CPT/HCPCS: 36415; 80069; 81001; 83036; 83970; 84439; 84443